=== PATIENT | male | born 1960 | race African-American/Black ===

== ENCOUNTER 2022-08-16 11:03 | Emergency (ER) | payer BC | END 2022-08-16 12:41 | disposition left against medical advice (07) | LOC: ER 11:03 | DX: R05.9 Cough, unspecified (principal); Z53.21 Procedure and treatment not carried out due to patient leaving prior to being seen by health care provider ==

== ENCOUNTER 2025-02-10 17:54 | Emergency (ER) | payer BC ==
[~2025-02-10] VITALS: Ht 175.3 cm; Wt 97.0 kg
--- NOTE | 2025-02-10 18:03 | ED.PDOC ---
HPI Comments 64y M who presents to the ED for chief complaint of chest pain. - pt states he has been having midsternal chest pain for the past 1 1/2 weeks - pt states his pain is intermittent, non-radiating, with noted exacerbation of pain when sitting and no relieving factors -pt otherwise denies any associated symptoms Past Medical history: denies Past Surgical history: R hip replacement Medications: Ibuprofen p.r.n. Allergies: denies Social History: denies ETOH, denies tobacco use, denies drug use HPI: Poor Historian. Patient never had a cardiac stress test. REVIEW OF SYSTEMS: CONSTITUTIONAL: Denies acute: fever, diaphoresis, chills, generalized weakness. HEAD: Denies acute: headache, photophobia Eyes: Denies acute: Double vision, vision loss, eye pain, eye discharge. EARS: Denies acute: tinnitus, hearing loss, ear discharge, ear pain, THROAT: Denies acute: sore throat, swelling, difficulty swallowing , pain with swallowing, change in voice. NECK: Denies acute: neck pain, neck swelling, stiff neck. HEART: Denies acute : , palpitations, LUNGS: Denies acute: SOB, wheezing, cough, hemoptysis ABDOMEN: Denies acute: abdominal pain, Nausea, Vomiting, diarrhea, melena , hematemesis, hematochezia SKIN: Denies acute: rash, redness, lesions, itchiness. EXTREMITIES: Denies acute: calf pain, numbness, tingling, weakness, denies pain in extremity. Denies acute: Low back pain. Neuro: Denies acute: focal neurological deficit, motor or sensory focal neurological deficit, tremors, seizure like activity, confusion, dizziness, change in mental status, loss of bowel or bladder function, cauda equina like symptoms. : Denies acute: dysuria, hematuria, flank pain, increase in urinary frequency. PSYCH: Denies acute: hallucination, suicidal ideation, homicidal ideation. PHYSICAL EXAM: General: ----no----acute distress, awake and alert. Head: normocephalic, atraumatic. Neck: supple, trachea is midline, no swelling. Throat: Normal phonation. Eyes:, no erythema, no purulent discharge, no proptosis, no icterus. Heart: regular rate, regular rhythm, no significant murmur appreciated. Lungs: no apparent respiratory distress, Able to speak in full sentences. No wheezing, no rhonchi, no crackles. No stridors Clear to auscultation bilaterally. Abdomen: non tender to palpation, non distended, soft, no guarding, no rebound, + bowel sounds. Neuro: Awake, Alert, oriented to name, self, situation, follows commands GCS=15. Speech is normal. Skin: no petechia, no purpura, no cyanosis, non-pale, not jaundice. Lower extremities: --trace bilateral - Pitting edema no deformity, no focal swelling, no calf TTP. Makes eye contact. moves all four extremities. Face: no apparent facial droop. Ambulating in the ED independently. ED COURSE: Chief Complaint: Chest Pain Time Seen by MD: 18:22 Reviewed Notes: Medications, Allergies Allergies: Coded Allergies: NO KNOWN ALLERGIES (Unverified , 02/10/25) Information Source: Patient Mode of Arrival: Ambulatory EKG EKG : Pulse Rate (adult): 72 [place]: Normal Cardiac Rhythm: NSR Block: None Hypertrophy: None ST: Normal Was a procedure done? Was a procedure done?: No CP Differential Dx Differential Diagnosis: N/A Differential Diagnosis: Other (Ddx include but not limitied to gastritis, musculoskeletal pain, radiculopathy, atypical chest pain, dissection, aneurysm, ACS, unstable angina, hiatal hernia, GERD, anxiety, costochondritis, PE, pneumothroax, neoplasm, cardiac ischemia, drug abuse, anemia.) X-Ray, Labs, Meds, VS Vital Signs Date Time Temp Pulse Resp B/P (MAP) Pulse Ox O2 Delivery O2 Flow Rate FiO2 02/10/25 21:11 69 02/10/25 21:05 98.2 70 20 136/91 (106) 95 98.2 02/10/25 19:08 72 02/10/25 18:39 98.6 72 18 157/99 (118) 98 98.6 02/10/25 18:39 72 02/10/25 18:23 72 02/10/25 18:04 71 02/10/25 18:03 98.2 68 18 146/76 (99) 97 98.2 Lab Test 02/10/25 21:00 02/10/25 19:04 02/10/25 18:07 Range/Units Troponin I High Sensitivity 40 48 42 </=54 ng/L White Blood Count 10.9 H 4.4-10.8 10^3/uL Red Blood Count 4.55 4.5-5.90 10^6/uL Hemoglobin 13.6 13.5-17.5 g/dL Hematocrit 40.4 L 41.0-53.0 % Mean Corpuscular Volume 88.7 80.0-100.0 fL Mean Corpuscular Hemoglobin 29.9 28.0-32.0 pg Mean Corpuscular Hemoglobin Concent 33.7 32.0-36.0 g/dL Red Cell Distribution Width 14.9 H 11.8-14.3 % Platelet Count 242 140-450 10^3/uL Mean Platelet Volume 8.2 6.9-10.8 fL Neutrophils (%) (Auto) 50.5 37.0-80.0 % Lymphocytes (%) (Auto) 35.9 10.0-50.0 % Monocytes (%) (Auto) 8.1 0.0-12.0 % Eosinophils (%) (Auto) 5.0 0.0-7.0 % Basophils (%) (Auto) 0.5 0.0-2.0 % Neutrophils # (Auto) 5.5 1.6-8.6 10 ^3/uL Lymphocytes # (Auto) 3.9 0.4-5.4 10 ^3/uL Monocytes # (Auto) 0.9 0-1.3 10 ^3/uL Eosinophils # (Auto) 0.6 0-0.8 10 ^3/uL Basophils # (Auto) 0.1 0-0.2 10 ^3/uL Nucleated Red Blood Cells 0.2 % Sodium Level 143 136-145 mmol/L Potassium Level 3.7 3.5-5.1 mmol/L Chloride Level 108 H 98-107 mmol/L Carbon Dioxide Level 27 20-31 mmol/L Anion Gap 8 5-15 Blood Urea Nitrogen 14 9-23 mg/dL Creatinine 1.12 0.700-1.30 mg/dL Glomerular Filtration Rate Calc 73 >90 mL/min BUN/Creatinine Ratio 12.5 10.0-20.0 Serum Glucose 94 74-106 mg/dL Calcium Level 9.4 8.7-10.4 mg/dL Total Bilirubin 0.3 0.2-1.0 mg/dL Aspartate Amino Transferase (AST) 19 13-40 U/L Alanine Aminotransferase (ALT) 13 7-40 U/L Alkaline Phosphatase 100 46-116 U/L Total Protein 7.0 5.7-8.2 g/dL Albumin 4.2 3.2-4.8 g/dL Current Medications Medications (Trade) Dose Ordered Sig/Lesley Route Start Time Stop Time Status Last Admin Aspirin (Ecotrin Enteric Coated Tablet) 325 mg ONCE ONCE PO 02/10/25 18:00 02/10/25 18:01 DC 02/10/25 18:36 [place] [id number] Ph: [phone] DIAGNOSTIC IMAGING Diagnostic Imaging Report : [id number] Signed PATIENT: ESTELLA DRAKE ACCT: [id number] UNIT: [id number] : 1960 LOC: ER ROOM / BED: / AGE / SEX: 64 / M ADM STATUS: REG ER SERVICE 04 ORDERING PHYSICIAN: GUY BARRETO DO PROCEDURE(s): CXRP - CHEST PORTABLE REASON: cp ORDER NUMBER(s): [id number], ACCESSION NUMBER(s): [id number] CHEST RADIOGRAPH Indication: cp Technique: Single frontal view of the chest was obtained Comparison: None FINDINGS: Lines and Tubes: None Lungs: No focal consolidation. Pleura: No effusion. No pneumothorax. Cardiomediastinal contours: Unremarkable Bones: No acute osseous abnormality. Moderate degenerative changes of bilateral AC joints. IMPRESSION: No acute cardiopulmonary disease. ATED BY: DANICA DIAZ DO DICTATED DATE/TIME: 02/10/251846 SIGNED BY: DANICA DIAZ DO SIGNED DATE/TIME: 02/10/251846 CC: Time of 1ST Reevaluation: 22:37 Reevaluation 1ST: Resolved Patient Education/Counseling: Diagnosis, Treatment Family Education/Counseling: No Family Present Comments Patient presented with the above HPI.--radial----workup was initiated. patient was found with the above mentioned diagnosis. the following medications were ordered: please refer to order lists of meds and tests obtained by myself Dr. Barreto. Patient ED course and VS have been stabilized. Patient has been reassessed in the ED and remained in a stable condition. Pertinent incidental findings were discussed with the patient and/or family. Patient/family voices understanding and is agreeable with plan. Patient has been observed in the ED adequate length of time to insure improvemen t/stability. Escalation of care considered: Consideration of escalation to observation or admission Patient was ADMITTED to the medicine team for further evaluation and treatment of their presentation. However I was later notified after the medicine team saw the patient that the patient eloped. All the reports of any imaging studies that were ordered by myself were reviewed by myself. Departure 1 Departure Time of Disposition: 20:43 Impression: Primary Impression: Chest pain Disposition: ADMITTED INPATIENT Admit to: Tele Condition: Guarded Discharged With: Self Critical Care Note Critical Care Time?: No Heart Score Heart Score: Heart Score Response (Comments) Value History Slightly Suspicious 0 EKG Normal 0 Age 45-64 1 Risk Factors No known risk factors 0 Troponin Normal limit 0 Total 1 I personally scribed for GUY BARRETO DO ([email or web address]) on 02/10/25 at 18:03. Electronically submitted by Denys Rodriguez ([employer]). I personally scribed for GUY BARRETO DO ([email or web address]) on 02/10/25 at 18:23. Electronically submitted by Denys Rodriguez ([employer]). I personally scribed for GUY BARRETO DO ([email or web address]) on 02/10/25 at 21:18. Electronically submitted by Denys Rodriguez ([employer]). I personally scribed for GUY BARRETO DO ([email or web address]) on 02/10/25 at 22:16. Electronically submitted by Denys Rodriguez ([employer]). I personally scribed for GUY BARRETO DO ([email or web address]) on 02/10/25 at 22:17. Electronically submitted by Denys Rodriguez ([employer]). GUY BARRETO DO Feb 10, 2025 18:03
[2025-02-10 18:27] LABS: Basophils # (auto) 0.1 10 ^3/uL (0-0.2); Basophils % (auto) 0.5 % (0.0-2.0); Eosinophils # (auto) 0.6 10 ^3/uL (0-0.8); Hematocrit 40.4 % (41.0-53.0); Hemoglobin 13.6 g/dL (13.5-17.5); Lymphocytes # (auto) 3.9 10 ^3/uL (0.4-5.4); Lymphocytes % (auto) 35.9 % (10.0-50.0); Mean Corpuscular Hemoglobin 29.9 pg (28.0-32.0); Mean Corpuscular Hgb Conc. 33.7 g/dL (32.0-36.0); Mean Corpuscular Volume 88.7 fL (80.0-100.0); Monocytes # (auto) 0.9 10 ^3/uL (0-1.3); Monocytes % (auto) 8.1 % (0.0-12.0); Neutrophils # (auto) 5.5 10 ^3/uL (1.6-8.6); Neutrophils % (auto) 50.5 % (37.0-80.0); Nucleated Red Blood Cells % 0.2 %; Platelet Count (auto) 242 10^3/uL (140-450); Red Blood Cells 4.55 10^6/uL (4.5-5.90); Red Cell Distribution Width 14.9 % (11.8-14.3); White Blood Cell 10.9 10^3/uL (4.4-10.8)
--- NOTE | 2025-02-10 18:30 | ECG ---
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
[2025-02-10] MEDS: ASPirin-EC 325mg tab PO ONE (18:36)
[2025-02-10] MEDS: NITROGLYCERIN 0.4 MG SL TAB SL ONE (18:36)
[2025-02-10 18:39] VITALS: PULSE 72
[2025-02-10 18:40] LABS: Alanine Aminotransferase 13 U/L (7-40); Albumin 4.2 g/dL (3.2-4.8); Alkaline Phosphatase 100 U/L (46-116); Anion Gap 8 (5-15); Aspartate Aminotransferase 19 U/L (13-40); BUN/Creatinine Ratio 12.5 (10.0-20.0); Bilirubin, Total 0.3 mg/dL (0.2-1.0); Blood Urea Nitrogen 14 mg/dL (9-23); Calcium 9.4 mg/dL (8.7-10.4); Carbon Dioxide 27 mmol/L (20-31); Glucose 94 mg/dL (74-106); Potassium 3.7 mmol/L (3.5-5.1); Sodium 143 mmol/L (136-145)
[2025-02-10 18:43] LABS: Chloride 108 mmol/L (98-107)
--- NOTE | 2025-02-10 18:49 | DVH ---
CHEST RADIOGRAPH Indication: cp Technique: Single frontal view of the chest was obtained Comparison: None FINDINGS: Lines and Tubes: None Lungs: No focal consolidation. Pleura: No effusion. No pneumothorax. Cardiomediastinal contours: Unremarkable Bones: No acute osseous abnormality. Moderate degenerative changes of bilateral AC joints. IMPRESSION: No acute cardiopulmonary disease.
--- NOTE | 2025-02-10 19:23 | ECG ---
[facility] Test Date: 2025-02-10 Test Time: 19:08:19 Pat Name: ESTELLA DRAKE Department: ER Room: Gender: M Manager Editorial: JENNIE : 1960 Requested By: GUY BARRETO Order Number: [id number] Reading MD: Chetan Suresh Measurements Intervals [place] Rate: 72 P: 57 OR: 203 QRS: 95 QRSD: 98 T: 0 QT: 409 QTc: 448 Interpretive Statements Sinus rhythm Atrial premature complexes Borderline prolonged OR interval Borderline right axis deviation Abnormal R-wave progression, late transition Electronically Signed On 02-11-2025 21:12:21 PDT by Chetan Suresh Please click the below link to view image of tracing.
[2025-02-10 21:05] VITALS: BP 136/91; RESP 20; TEMP 98.2; O2SAT 95
[2025-02-10 21:11] VITALS: PULSE 69
--- NOTE | 2025-02-10 22:56 | ECG ---
[facility] Test Date: 2025-02-10 Test Time: 21:11:49 Pat Name: ESTELLA DRAKE Department: ER Room: Gender: M It Technical Specialist: MARCOS : 1960 Requested By: GUY BARRETO Order Number: [id number] Reading MD: Chetan Suresh Measurements Intervals [place] Rate: 69 P: 8 [place]: 202 QRS: -36 QRSD: 97 T: 62 QT: 443 QTc: 475 Interpretive Statements Sinus rhythm Atrial premature complexes Left axis deviation Electronically Signed On 02-11-2025 21:13:33 PDT by Chetan Suresh Please click the below link to view image of tracing.
== END 2025-02-10 22:25 | disposition left against medical advice (07) ==
LOC: ER 17:54
DX: R07.89 Other chest pain (principal); Z96.641 Presence of right artificial hip joint
CPT/HCPCS: 36415; 71045; 80053; 84484; 85025; 93005

== ENCOUNTER 2025-08-11 05:11 | Emergency (ER) | payer MEDICARE, BC ==
[~2025-08-11] VITALS: Ht 175.3 cm; Wt 100.3 kg
[2025-08-11] MEDS: ONDANSETRON ODT 4 MG TAB PO ONE (05:33)
[2025-08-11] MEDS: HYDROcodone-ACET 5/325MG TAB PO ONE (05:35)
[2025-08-11 05:38] VITALS: BP 175/116; PULSE 77; RESP 16; TEMP 97.9; O2SAT 97
--- NOTE | 2025-08-11 06:15 | DVH ---
EXAM: CT CERVICAL WITHOUT CONTRAST INDICATION: Neck pain EXAM DATE: 08/11/2025 05:38 AM COMPARISON: None TECHNIQUE: Multiple axial CT images of the cervical spine were obtained using bone algorithm. Axial and coronal reformatting was done. Bone and soft tissue windows were reviewed. Radiation Dose Information: CT Dose: CTDI volume is 24.23 mGy. Dose-length product is 599.1 mGy*cm FINDINGS: The cervical alignment is intact. There is straightening of the cervical lordosis. No acute cervical spine fracture is identified. The vertebral body heights are intact. No suspicious osseous lesions are identified. Multilevel intervertebral disc space narrowing and ventral osteophytes. No significant spinal stenosis. Multilevel neural foraminal stenosis. The lung apices are clear. There is no prevertebral soft tissue swelling. IMPRESSION: 1. No evidence of acute cervical spine fracture or traumatic malalignment. 2. Multilevel degenerative changes in the cervical spine. All CT scans at this medical facility are performed using dose modulation techniques as appropriate to a performed exam including the following: Automated exposure control was utilized; adjustment of the MA and/or KV according to patient size; and use of iterative reconstruction technique.
[2025-08-11] MEDS: KETOROLAC TROMETH 30 MG/ML 1ML VIAL IM ONE (06:37)
[2025-08-11] MEDS ORDERED: NAP500T PO (06:38)
[2025-08-11] MEDS ORDERED: LIDO5DIS21 TOP (06:38)
[2025-08-11] MEDS ORDERED: METH-1181 PO (06:38)
--- NOTE | 2025-08-11 07:03 | ED.PDOC ---
Back pain HPI HPI Comments 65-year-old male here today with complaints of right-sided neck/trapezius muscle pain that started approximately 24 hours ago. Patient states that he woke up with the pain. Does not recall any specific trauma. States that this has happened to him in the past. No numbness or weakness. No vision changes. No headaches. Able to walk and speak without any difficulty. Took ibuprofen once with mild relief but the pain returned so is here today for evaluation. No other pain or symptoms. Chief Complaint: Neck Pain Time Seen by MD: 06:17 Allergies: Coded Allergies: NO KNOWN ALLERGIES (Unverified , 02/10/25) Home Meds Active Scripts Lidocaine (LIDODERM 5% TOPICAL PATCH) 1 Patch Ph, 1 PATCH TOP DAILY for 5 Days, #5 PATCH Prov:JONATHON FAGAN MD 08/11/25 Naproxen (NAPROSYN TABLET) 500 Mg Tb, 1 TAB PO BID for 5 Days, #10 TAB 1 Refill Prov:JONATHON FAGAN MD 08/11/25 Methocarbamol (Methocarbamol) 500 Mg Tab, 500 MG PO QID for 5 Days, #20 TAB Prov:JONATHON FAGAN MD 08/11/25 Lidocaine (LIDODERM 5% TOPICAL PATCH) 1 Patch Ph, 1 PATCH TOP DAILY for 5 Days, #5 PATCH Prov:JONATHON FAGAN MD 08/11/25 Naproxen (NAPROSYN TABLET) 500 Mg Tb, 1 TAB PO BID for 5 Days, #10 TAB 1 Refill Prov:JONATHON FAGAN MD 08/11/25 Methocarbamol (Methocarbamol) 500 Mg Tab, 500 MG PO QID for 5 Days, #20 TAB Prov:JONATHON FAGAN MD 08/11/25 Mode of Arrival: Ambulatory Past Medical History PAST MEDICAL HISTORY: Denies Surgical History: Denies all surgeries Musculoskeletal: reports: neck pain Physical Exam General Appearance: No Apparent Distress, Normal HEENT: Normal ENT Inspection, Pharynx Normal, TMs Normal Neck: Full Range of Motion, Normal, Normal Inspection, Other (Mild tenderness to palpation to the right paracervical muscles and trapezius. No overlying skin changes. No rash. No midline tenderness to palpation. Full range of motion. Supple.) Respiratory: Chest Non-Tender, Lungs Clear, No Accessory Muscle Use, No Respiratory Distress, Normal Breath Sounds Cardiovascular: No Edema, No JVD, No Murmur, No Gallop, Normal Peripheral Pulses, Regular Rate/Rhythm Breast Exam: Deferred Gastrointestinal: No Organomegaly, Non Tender, No Pulsatile Mass, Normal Bowel Sounds, Soft Genitalia: Deferred Pelvic: Deferred Rectal: Deferred Extremities: No calf tenderness, Normal capillary refill, Normal inspection, Normal range of motion, Non-tender, No pedal edema Musculoskeletal : Apperance: Normal Neurologic: Alert, control supervisor II-XII nml as Tested, No Motor Deficits, Normal Affect, Normal Mood, No Sensory Deficits Cerebellar Function: Normal Reflexes: Normal Skin: Dry, Normal Color, Warm Lymphatic: No Adenopathy Was a procedure done? Was a procedure done?: No Back Pain Differential Dx Differential Diagnosis: Aortic Dissection, Fracture, Musculoskeletal Pain, Other (Carotid dissection, meningitis) X-Ray, Labs, Meds, VS Vital Signs Date Time Temp Pulse Resp B/P (MAP) Pulse Ox O2 Delivery O2 Flow Rate FiO2 08/11/25 05:38 97.9 77 16 175/116 (135) 97 97.9 08/11/25 05:13 97.9 77 16 168/103 97 97.9 Current Medications Medications (Trade) Dose Ordered Sig/Lesley Route Start Time Stop Time Status Last Admin Acetaminophen/ Hydrocodone Bitart (Laura 5/325MG Tab) 1 tab ONCE ONCE PO 08/11/25 05:30 08/11/25 05:31 DC 08/11/25 05:35 Ondansetron HCl (Zofran Po) 4 mg ONCE ONCE PO 08/11/25 05:30 08/11/25 05:31 DC 08/11/25 05:33 Ketorolac Tromethamine (Toradol Injection) 15 mg ONCE ONCE IM 08/11/25 06:30 08/11/25 06:31 DC 08/11/25 06:37 X-Ray, Labs, Meds, VS Comment Patient presents with neck pain most likely secondary to neck muscle spasm/strain. Patient without high risk features of neck pain such as numbness, weakness, vision changes, headaches, tingling, or any other neurologic findings. Discussed pain control with [id number] pain medication, warm packs, and the importance of physical therapy and gentle neck range of motion/exercises. Patient was otherwise hemodynamically stable and was discharged home ambulating unassisted with a steady gait. CT scan of the neck without evidence of fracture or dislocation. Reviewed return precautions including but not limited to high- risk features as above and uncontrolled pain. Patient is in agreement with the plan and all questions were answered. Patient was also instructed to follow up with their primary care physician within 2-3 days for re-evaluation and for possible referral to a neck/back specialist, physical therapist, and consideration of outpatient MRI should their symptoms not resolve. Considered carotid dissection, epidural abscess, spinal stenosis, malignancy, fracture, dislocation, AAA, aortic dissection, but consider these to be less likely based on the above history/physical/evaluation. Time of 1ST Reevaluation: 06:32 Reevaluation 1ST: Improved Patient Education/Counseling: Diagnosis, Treatment, Prognosis, Need For Follow Up Family Education/Counseling: No Family Present SEPSIS Sepsis Screen Date sepsis recognized/suspect: Aug 11, 2025 Time Sepsis recognized/suspect: 0516 Recent Procedure: No On Antibiotic Therapy: No Respiratory Rate >20: No Heart Rate >90: No Temp<36 C (96.8 F) or >38.3 C: No SBP <90 or MAP <65 mmHG: No New Acute Mental Status Change: No Is the patient on CPAP, BIPAP,: No Physician Orders Cervical Without Contrast (08/11/25 05:26) Vital Signs Date Time Temp Pulse Resp B/P (MAP) Pulse Ox O2 Delivery O2 Flow Rate FiO2 08/11/25 05:38 97.9 77 16 175/116 (135) 97 97.9 08/11/25 05:13 97.9 77 16 168/103 97 97.9 Medications Medications Dose Ordered Sig/Lesley Route Start Time Stop Time Status Last Admin Dose Admin Acetaminophen/ Hydrocodone Bitart 1 tab ONCE ONCE PO 08/11/25 05:30 08/11/25 05:31 DC 08/11/25 05:35 Ketorolac Tromethamine 15 mg ONCE ONCE IM 08/11/25 06:30 08/11/25 06:31 DC 08/11/25 06:37 Ondansetron HCl 4 mg ONCE ONCE PO 08/11/25 05:30 08/11/25 05:31 DC 08/11/25 05:33 Departure 1 Departure Time of Disposition: 07:02 Impression: Primary Impression: Cervical muscle strain Disposition: 01 HOME / SELF CARE / HOMELESS Condition: Stable e-Prescriptions Lidocaine (LIDODERM 5% TOPICAL PATCH) 1 Patch Ph 1 PATCH TOP DAILY for 5 Days, #5 PATCH Prov: JONATHON FAGAN MD 08/11/25 Naproxen (NAPROSYN TABLET) 500 Mg Tb 1 TAB PO BID for 5 Days, #10 TAB 1 Refill Prov: JONATHON FAGAN MD 08/11/25 Methocarbamol (Methocarbamol) 500 Mg Tab 500 MG PO QID for 5 Days, #20 TAB Prov: JONATHON FAGAN MD 08/11/25 Lidocaine (LIDODERM 5% TOPICAL PATCH) 1 Patch Ph 1 PATCH TOP DAILY for 5 Days, #5 PATCH Prov: JONATHON FAGAN MD 08/11/25 Naproxen (NAPROSYN TABLET) 500 Mg Tb 1 TAB PO BID for 5 Days, #10 TAB 1 Refill Prov: JONATHON FAGAN MD 08/11/25 Methocarbamol (Methocarbamol) 500 Mg Tab 500 MG PO QID for 5 Days, #20 TAB Prov: JONATHON FAGAN MD 08/11/25 Discharged With: Self Critical Care Note Critical Care Time?: No Stability Stability form required: No Heart Score Heart Score: Heart Score Response (Comments) Value History N/A 0 EKG N/A 0 Age N/A 0 Risk Factors N/A 0 Troponin N/A 0 Total 0 JONATHON FAGAN MD Aug 11, 2025 07:03
== END 2025-08-11 06:46 | disposition home or self-care (01) ==
LOC: ER 05:11
DX: S16.1XXA Strain of muscle, fascia and tendon at neck level, initial encounter (principal); X58.XXXA Exposure to other specified factors, initial encounter; Y93.89 Activity, other specified; Y92.89 Other specified places as the place of occurrence of the external cause; Y99.8 Other external cause status
CPT/HCPCS: 72125; 96372; 99285; J1885; Q0162